=== PATIENT | female | born 1950 | race Caucasian/White ===

== ENCOUNTER 2023-12-06 10:13 | Emergency (ER) | payer MEDICAID ==
[~2023-12-06] VITALS: Ht 165.1 cm; Wt 70.0 kg
[2023-12-06 10:15] VITALS: O2SAT 98
[2023-12-06] MEDS: KETOROLAC 30MG/ML VIAL IV ONE (12:21)
[2023-12-06] MEDS ORDERED: IBUP-2029 MT (12:46)
[2023-12-06] MEDS ORDERED: CYCL10TA21 MT (12:46)
[2023-12-06 13:12] VITALS: BP 144/78; PULSE 100; RESP 18; TEMP 98.4
== END 2023-12-06 13:26 | disposition home or self-care (01) ==
LOC: ER 10:13
DX: S33.5XXA Sprain of ligaments of lumbar spine, initial encounter (principal); M48.061 Spinal stenosis, lumbar region without neurogenic claudication; E11.9 Type 2 diabetes mellitus without complications; I10 Essential (primary) hypertension; V98.8XXA Other specified transport accidents, initial encounter; Y93.89 Activity, other specified; Y92.89 Other specified places as the place of occurrence of the external cause; Y99.8 Other external cause status
CPT/HCPCS: 99285; 96374; 72131; J1885